=== PATIENT | female | born 1960 | race African-American/Black ===

== ENCOUNTER 2016-10-11 11:13 | Emergency (ER) | payer BC ==
[~2016-10-11 11:13] MED LIST: *UNABLE1; ALAVERT10 MG PO; ALEVE220 MG PO; CENTRUM TAB1 TAB PO; CLARIT10 PO; DIOV160 PO; FERROUS SULF325 M1 PO; GLUCPH PO; HCTZ12.5 PO; LIPITOR10 PO; LOSARTAN PO; METFORMIN PO; MUCINEX600 MG PO; NASONEX NAS; OPANA ER10 MG PO; PR25 PO; ROXICODONE15 MG PO
== END 2016-10-11 17:41 | disposition home or self-care (01) ==
LOC: ER 11:13
DX: G89.29 Other chronic pain (principal); M25.561 Pain in right knee; M25.562 Pain in left knee; I10 Essential (primary) hypertension; Z79.899 Other long term (current) drug therapy
CPT/HCPCS: 73560-RT; 99284; A9270-GY